=== PATIENT | female | born 1960 | race Caucasian/White ===

== ENCOUNTER 2016-06-25 18:51 | Emergency (ER) | payer BC ==
[~2016-06-25] VITALS: Ht 157.5 cm; Wt 84.1 kg
[2016-06-25 18:52] VITALS: TEMP 97.7
[2016-06-25] MEDS ORDERED: SYNTHROID0.05 MG/TA PO (18:55)
[2016-06-25] MEDS ORDERED: ZOCOR5 MG PO (18:56)
[2016-06-25] MEDS ORDERED: ZOLOFT 25MG25 MG PO (18:56)
[2016-06-25] MEDS ORDERED: NORCO 325 MG-51 TAB PO (20:54)
[2016-06-25 21:35] VITALS: BP 122/79; PULSE 86
== END 2016-06-25 21:40 | disposition home or self-care (01) ==
LOC: COL.ER 18:51
DX: S52.572A Other intraarticular fracture of lower end of left radius, initial encounter for closed fracture (principal); S52.612A Displaced fracture of left ulna styloid process, initial encounter for closed fracture; W01.198A Fall on same level from slipping, tripping and stumbling with subsequent striking against other object, initial encounter; Y92.59 Other trade areas as the place of occurrence of the external cause
CPT/HCPCS: J1170; J2405